=== PATIENT | female | born 1995 | race African-American/Black ===

== ENCOUNTER → 2019-09-12 | Emergency (ER) | payer MEDICAID, OTHER ==
[~2019-09-12] VITALS: Ht 160 cm; Wt 52.2 kg
[~2019-09-12] MED LIST: ACETAMINOPHEN-1 EAC1 ORAL; ACETAMINOPHEN500 M3 ORAL; BENTYL10 MG ORAL; HYDROCODON-ACE1 EA15 ORAL; IBUPROFEN600 MG ORAL; KEFLEX500 MG ORAL; NKM; REGLAN10 M1 ORAL; REGLAN10 MG ORAL; TYLENOL EXTRA500 MG ORAL; ZOFRAN ODT4 MG ORAL; ZOFRAN ODT8 MG ORAL; ZOFRAN4 MG ORAL
[2019-09-12 16:25] VITALS: BP 101/73
--- NOTE | 2019-09-12 16:35 | NUR ---
ED Nurse Note: Patient walked into ED from home c/o earache and coughing for the past 2 days. patient is a/o x3 ambulatory steady gait, breathing unlabored and even, speaking in full sentences. due to ear congestion and cough for last 2 days. 99.5 F
--- NOTE | 2019-09-12 16:56 | Emergency Room Report ---
History of Present Illness General Chief Complaint: Upper Respiratory Illness Source: Patient Present Illness HPI Disclaimer: Please note that this report is being documented using [employer] technology. This can lead to erroneous entry secondary to incorrect interpretation by the dictating instrument. HPI: Otherwise healthy 34-year-old female presents for evaluation of cough and congestion. Symptoms began 3 to 4 days ago. Her daughter and girlfriend are also sick at home. She reports subjective fevers, fatigue, nasal congestion, bilateral ear fullness, sore throat and nonproductive cough. Has been using Tylenol Motrin successfully controlled symptoms at home. Denies vomiting or diarrhea. Able to eat and drink. Wanted to be evaluated with her daughter today. PMH: Denies PSH: Denies Allergies: Penicillin Social Hx: Denies Allergies: Coded Allergies: PENICILLINS (Unverified Allergy, Unknown, 10/07/14) Patient History Last Menstrual Period: 08/27/19 Nursing Documentation-PMH Past Medical History: No Stated History Hx Hypertension: No Review of Systems All Other Systems: negative except mentioned in HPI Physical Exam Vital Signs Date Time Temp Pulse Resp B/P (MAP) Pulse Ox O2 Delivery O2 Flow Rate FiO2 09/12/19 16:25 99.5 100 18 101/73 (82) 96 Room Air General: Awake and alert, no acute distress HEENT: NC/AT. EOMI. PERRLA. Noninjected sclera. Tympanic membranes are pearly narvaez nonbulging without effusion. Uvula midline, mild erythema without edema. No tonsillar exudate. Neck: Supple, trachea midline, no significant lymphadenopathy Cardiovascular: RRR. S1 and S2 normal. No murmur appreciated Resp: Normal work of breathing. No cough, wheezing or crackles appreciated Abdomen: Abdomen is soft, nondistended. Nontender Skin: Intact. No abrasions, laceration or rash over the exposed skin MSK: Normal tone and bulk. Moving all extremities. No obvious deformity. Neuro: Awake and alert. Mentating appropriately. Medical Decision Making Diagnostic Impression: Primary Impression: Viral respiratory illness Additional Impression: Upper respiratory infection ER Course 24-year-old female presents for evaluation of URI symptoms for the past 3 days. She is afebrile, stable vital signs, well-appearing. Likely a viral syndrome which should resolve in the next few days. We will continue NSAIDs and rest at home. Discussed need to follow-up with her PMD. Do not believe she requires emergent labs or imaging at this time. She will be discharged home with outpatient follow-up. Understands and agrees with this treatment plan. Last Vital Signs Date Time Temp Pulse Resp B/P (MAP) Pulse Ox O2 Delivery O2 Flow Rate FiO2 09/12/19 16:25 99.5 100 18 101/73 (82) 96 Room Air Disposition: HOME, SELF-CARE Condition: Stable Referrals: [facility] Patient Instructions: Upper Respiratory Infection, Adult Additional Instructions: Continues Tylenol and Motrin for control of fevers and generalized discomfort. You can use [id number]-[id number] cough medication if it is helping you. Drink plenty of fluids to avoid dehydration and follow-up with your doctor at the next available appointment within 1 to 2 weeks for reevaluation. If your symptoms suddenly worsen return to the emergency department for reevaluation. Robinson Watson MD Sep 12, 2019 16:56
[2019-09-12 17:02] VITALS: BP 101/73
--- NOTE | 2019-09-12 17:03 | NUR ---
ER DISCHARGE NOTE: Patient is cleared to be discharged per ERMD DR HITCHCOCK , pt is aox4, on room air, with stable vital signs. pt was given dc instructions, pt was able to verbalize understanding, pt id band removed without complications. pt is able to ambulate with steady gait. pt took all belongings.
== END | disposition home or self-care (01) ==
LOC: EMR 20:15
DX: B34.9 Viral infection, unspecified (principal); J06.9 Acute upper respiratory infection, unspecified; Z88.0 Allergy status to penicillin
CPT/HCPCS: 99281